=== PATIENT | female | born 1950 | race Caucasian/White ===

== ENCOUNTER 2016-11-10 12:36 | Outpatient (CLI) | payer OTHER | END 2016-11-10 21:00 | disposition home or self-care (01) | LOC: SCA 12:36 | DX: Z01.818 Encounter for other preprocedural examination (principal); R05 Cough; M47.892 Other spondylosis, cervical region | CPT/HCPCS: 71020-TC; 93005 ==

== ENCOUNTER 2016-12-29 12:13 | Outpatient (CLI) | payer OTHER | END 2016-12-29 18:33 | disposition home or self-care (01) | LOC: SRD 12:13 | DX: M47.892 Other spondylosis, cervical region (principal); M81.0 Age-related osteoporosis without current pathological fracture | CPT/HCPCS: 72052 ==

== ENCOUNTER 2017-01-31 10:24 | Outpatient (CLI) | payer OTHER | END 2017-01-31 20:34 | disposition home or self-care (01) | LOC: SMI 10:24 | DX: M47.894 Other spondylosis, thoracic region (principal); D18.09 Hemangioma of other sites; N28.1 Cyst of kidney, acquired; Z98.890 Other specified postprocedural states | CPT/HCPCS: 72146 ==

== ENCOUNTER 2017-05-16 13:02 | Outpatient (CLI) | payer OTHER | END 2017-05-16 19:56 | disposition home or self-care (01) | LOC: SRD 13:02 | PROVIDERS: ATTEND Neurological Surgery | DX: M54.5 Low back pain (principal); Z98.1 Arthrodesis status; Z98.890 Other specified postprocedural states | CPT/HCPCS: 72040-TC ==